=== PATIENT | female | born 1960 | race African-American/Black ===

== ENCOUNTER 2016-12-29 11:45 | Observation (INO) | payer OTHER ==
--- NOTE | 2016-12-29 14:09 | PDOC ---
History of Present Illness <Rufino Finley - Last Filed: 12/29/16 16:47> - General History Source: Patient Exam Limitations: No Limitations - History of Present Illness Initial Comments: 12/29/16 15:20 The patient is a 56 year old female, with no significant past medical history, who presents to the emergency department complaining of palpitations for several weeks. The patient reports her palpitations usually occur 2-3 times per week, and usually wake her up in the middle of the night. Typically her palpitations occur during the night. The patient reports she has not followed up with her PCP, Dr. Hanley, in over a year, because she relocated to [place]. However, the patient reports she is now back to [place]. Upon moving back, the patient reports feeling anxious about her return, but denies any other stressors. The patient denies any shortness of breath, diaphoresis, or chest pain. The patient denies any fever, chills, cough, headache, or dizziness. The patient denies any sick contacts. Allergies: None reported. Past Surgical History: None reported. Family History: Diabetes (mother) Social History: Non-smoker. Denies alcohol or drug use. PCP: Dr. Hanley <Duncan Liang - Last Filed: 12/29/16 16:52> - General Chief Complaint: Palpitations Stated Complaint: PALPITATIONS, DIZZINESS Time Seen by Provider: 12/29/16 14:09 Past History - Past Medical History Cardiac Disorders: Yes - Psycho/Social/Smoking Cessation Hx Suicidal Ideation: No Smoking History: Never smoked Information on smoking cessation initiated: No <Rufino Finley - Last Filed: 12/29/16 16:47> <uDncan Liang - Last Filed: 12/29/16 16:52> - Past Medical History Allergies/Adverse Reactions: Allergies Allergy/AdvReac Type Severity Reaction Status Date / Time No Known Allergies Allergy Verified 12/29/16 11:58 Home Medications: Ambulatory Orders NK [No Known Home Medication] 12/29/16 Review of Systems - Review of Systems Able to Perform ROS?: Yes Comments:: 12/29/16 15:21 GENERAL/CONSTITUTIONAL: No fever or chills. No weakness. HEAD, EYES, EARS, NOSE AND THROAT: No change in vision. No ear pain or discharge. No sore throat. CARDIOVASCULAR: +Palpitations. No chest pain or shortness of breath. RESPIRATORY: No cough, wheezing, or hemoptysis. GASTROINTESTINAL: No nausea, vomiting, diarrhea or constipation. GENITOURINARY: No dysuria, frequency, or change in urination. MUSCULOSKELETAL: No joint or muscle swelling or pain. No neck or back pain. SKIN: No rash NEUROLOGIC: No headache, vertigo, loss of consciousness, or change in strength/ sensation. ENDOCRINE: No increased thirst. No abnormal weight change. HEMATOLOGIC/LYMPHATIC: No anemia, easy bleeding, or history of blood clots. ALLERGIC/IMMUNOLOGIC: No hives or skin allergy. PSYCH: +Anxiety <GarthGiomilstorito - Last Filed: 12/29/16 16:52> *Physical Exam - Vital Signs Last Vital Signs Temp Pulse Resp BP Pulse Ox 98 F 64 18 127/60 98 12/29/16 11:54 12/29/16 11:54 12/29/16 11:54 12/29/16 11:54 12/29/16 11:54 <Rufino Finley - Last Filed: 12/29/16 16:47> - Vital Signs Last Vital Signs Temp Pulse Resp BP Pulse Ox 98 F 46 L 17 104/58 98 12/29/16 11:54 12/29/16 15:13 12/29/16 15:13 12/29/16 15:13 12/29/16 15:13 - Physical Exam Comments: 12/29/16 15:21 GENERAL: Awake, alert, and fully oriented, in no acute distress HEAD: No signs of trauma EYES: PERRLA, EOMI, sclera anicteric, conjunctiva clear ENT: Auricles normal inspection, hearing grossly normal, nares patent, oropharynx clear without exudates. Moist mucosa NECK: Normal ROM, supple, no lymphadenopathy, JVD, or masses LUNGS: Breath sounds equal, clear to auscultation bilaterally. No wheezes, and no crackles HEART: Regular rate and rhythm, normal S1 and S2, no murmurs, rubs or gallops ABDOMEN: Soft, nontender, normoactive bowel sounds. No guarding, no rebound. No masses EXTREMITIES: Normal range of motion, no edema. No clubbing or cyanosis. No cords, erythema, or tenderness NEUROLOGICAL: Cranial nerves II through XII grossly intact. Normal speech, normal gait SKIN: Warm, Dry, normal turgor, no rashes or lesions noted. <Duncan Liang - Last Filed: 12/29/16 16:52> Heart Score/ECG Review - ECG Impressions Comment:: 12/29/16 16:49 Vent. Rate: 46 bpm IMPRESSION: Sinus bradycardia. <Duncan Liang - Last Filed: 12/29/16 16:52> ED Treatment Course - LABORATORY CBC & Chemistry Diagram: 12/29/16 14:53 12/29/16 14:53 <Rufino Finley - Last Filed: 12/29/16 16:47> - LABORATORY CBC & Chemistry Diagram: 12/29/16 14:53 12/29/16 14:53 - RADIOLOGY Radiograph Interpretation: 12/29/16 16:51 EXAM: CXR INTERPRETED BY: Dr. Nava REVIEWED BY: Dr. Finley IMPRESSION: Normal Chest <Duncan Liang - Last Filed: 12/29/16 16:52> Medical Decision Making - Medical Decision Making 12/29/16 16:[address] Cantrell. <Duncan Liang - Last Filed: 12/29/16 16:52> *DC/Admit/Observation/Transfer - Discharge Dispostion Admit: Yes - Attestations Physician Attestion: 12/29/16 14:09 I, Dr. Rufino Finley, attest that this document has been prepared under my direction and personally reviewed by me in its entirety. I further attest, that it accurately reflects all work, treatment, procedures and medical decision -making performed by me. <Rufino Finley - Last Filed: 12/29/16 16:47> - Attestations Scribe Attestion: 12/29/16 16:50 Documentation prepared by Duncan Liang, acting as medical coding auditor for Rufino Finley DO. <Duncan Liang - Last Filed: 12/29/16 16:52> Diagnosis at time of Disposition: Heart palpitations, Bradycardia by electrocardiogram, SSS (sick sinus syndrome) - Discharge Dispostion Condition at time of disposition: Improved - Referrals Referrals: Demetrio Hanley MD [Primary Care Provider] -
[2016-12-29] MEDS: SODIUM CHLORIDE 1,000 ML IV SCH (15:00)
[2016-12-29 15:22] LABS: ALBUMIN 3.8 g/dl (3.4-5.0); ANION GAP 8 (8-16); CO2 29 mmol/L (21-32); CREATININE 0.7 mg/dL (0.55-1.02); GLUCOSE,RANDOM 84 mg/dL (74-106); MAGNESIUM 2.5 mg/dL (1.8-2.4); SGOT/AST 14 U/L (15-37); SGPT/ALT 12 U/L (12-78)
[2016-12-29 15:26] LABS: ALK PHOS 71 U/L (45-117); BILIRUBIN,TOTAL 0.3 mg/dL (0.2-1.0); TOT PROT 7.5 g/dl (6.4-8.2); TROPONIN I < 0.02 ng/ml (0.00-0.05)
--- NOTE | 2016-12-29 15:55 | EKG ---
Test Reason : Blood Pressure : / mmHG Vent. Rate : 046 BPM Atrial Rate : 046 BPM P-R Int : 166 ms QRS Dur : 080 ms QT Int : 444 ms P-R-T Axes : 070 054 066 degrees QTc Int : 388 ms SINUS BRADYCARDIA OTHERWISE NORMAL ECG WHEN COMPARED WITH ECG OF 18-AUG-2003 12:21, PREMATURE VENTRICULAR COMPLEXES ARE NO LONGER PRESENT Confirmed by LOIS MEDRANO MD ([id number]) on 12/29/2016 3:54:46 PM Referred By: Confirmed By:LOIS MEDRANO MD
[2016-12-29 16:43] LABS: BASOPHIL 0.6 % (0-2.0); EOSINOPHIL 1.5 % (0-4.5); MCH 28.1 pg (25.7-33.7); MCHC 33.5 g/dl (32.0-36.0); MEAN CELL VOLUME 83.9 fl (80-96); MEAN PLT VOLUME 8.7 fl (7.5-11.1); NEUTROPHILS 39.1 % (42.8-82.8); PLATELET COUNT 349 K/MM3 (134-434); RDW 13.5 % (11.6-15.6); WHITE BLOOD COUNT 4.8 K/mm3 (4.0-10.0)
[2016-12-29 18:26] VITALS: BMI 20.7
--- NOTE | 2016-12-29 19:02 | CON.CARD ---
Consult Consult Specialty:: Cardiology Referred by:: Sidney Reason for Consultation:: Palpitations, sinus bradycardia - History of Present Illness Chief Complaint: Palpitations History of Present Illness: The patient is a 56 year old female, with no significant past medical history presented to the emergency department complaining of non-exertional palpitations for several weeks, occurs 2-3 times per week, and usually wake her up in the middle of the night. The patient denies any chest tightness, shortness of breath, near or true syncope, orthopnea, PND or LE edema. Allergies: None reported. Past Surgical History: None reported. Family History: Diabetes (mother) Social History: Non-smoker. Denies alcohol or drug use. PCP: Dr. Hanley - History Source History Provided By: Patient Limitations to Obtaining History: No Limitations - Smoking History Smoking history: Never smoked Home Medications - Allergies Allergies/Adverse Reactions: Allergies Allergy/AdvReac Type Severity Reaction Status Date / Time No Known Allergies Allergy Verified 12/29/16 11:58 - Home Medications Home Medications: Ambulatory Orders NK [No Known Home Medication] 12/29/16 Review of Systems - Review of Systems Cardiovascular: reports: Palpitations Vital Signs: Vital Signs Temperature 98 F 12/29/16 11:54 Pulse Rate 56 L 12/29/16 18:21 Respiratory Rate 18 12/29/16 18:21 Blood Pressure 100/52 12/29/16 18:21 O2 Sat by Pulse Oximetry (%) 99 12/29/16 18:21 Constitutional: Yes: No Distress, Calm Neck: Yes: Supple Respiratory: Yes: Regular, CTA Bilaterally Gastrointestinal: Yes: Normal Bowel Sounds, Soft Cardiovascular: Yes: Bradycardia JVD: No Carotid Bruit: No Heart Sounds: Yes: S1, S2 Edema: No - Other Data SB @ [address]-T changes Imaging - Results Chest X-ray: Report Reviewed (NAD) Problem List - Problems (1) Heart palpitations Code(s): R00.2 - PALPITATIONS (2) Sinus bradycardia Code(s): R00.1 - BRADYCARDIA, UNSPECIFIED Assessment/Plan 1. Palpitations r/o sustained arrhythmia vs MVP syndrome 2. Sinus bradycardia P:1. Check TSH, echo to assess LV and valve fxn, tele monitoring 2. Further recommendations pending above study results 3. Thank you for consultative opportunity
--- NOTE | 2016-12-29 19:44 | HP ---
Admitting History and Physical - Primary Care Physician PCP: Arcadio Cantrell - Admission Chief Complaint: palpitations History of Present Illness: 56 year old female, with no significant past medical history presented to the emergency department complaining of non-exertional palpitations for several weeks, occurs 2-3 times per week, and usually wake her up in the middle of the night. The patient denies any chest tightness, shortness of breath, near or true syncope, orthopnea, PND or LE edema. pt knows about bradycardia for 14 years, dr kessler is her pmd, pt does not recal seeing a medical instructor - Past Medical History Cardiovascular: Yes: Other (braycardia) - Smoking History Smoking history: Never smoked Home Medications - Allergies Allergies/Adverse Reactions: Allergies Allergy/AdvReac Type Severity Reaction Status Date / Time No Known Allergies Allergy Verified 12/29/16 11:58 - Home Medications Home Medications: Ambulatory Orders NK [No Known Home Medication] 12/29/16 Physical Examination Vital Signs: Vital Signs Temperature 98 F 12/29/16 11:54 Pulse Rate 56 L 12/29/16 18:21 Respiratory Rate 18 12/29/16 18:21 Blood Pressure 100/52 12/29/16 18:21 O2 Sat by Pulse Oximetry (%) 99 12/29/16 18:21 Constitutional: Yes: No Distress HENT: Yes: Atraumatic Neck: Yes: Supple Cardiovascular: Yes: Regular Rate and Rhythm Respiratory: Yes: CTA Bilaterally Gastrointestinal: Yes: Normal Bowel Sounds Extremities: Yes: WNL Neurological: Yes: Alert, Oriented Problem List - Problems (1) Bradycardia by electrocardiogram Code(s): R00.1 - BRADYCARDIA, UNSPECIFIED (2) Heart palpitations Code(s): R00.2 - PALPITATIONS Assessment/Plan Laboratory Tests 12/29/16 12/29/16 14:53 14:53 WBC 4.8 RBC 4.24 Hgb 11.9 Hct 35.6 MCV 83.9 MCHC 33.5 RDW 13.5 Plt Count 349 MPV 8.7 Neutrophils % 39.1 L Lymphocytes % 45.6 H Monocytes % 13.2 H Eosinophils % 1.5 Basophils % 0.6 Sodium 141 Potassium 4.7 Chloride 104 Carbon Dioxide 29 Anion Gap 8 BUN 11 Creatinine 0.7 Creat Clearance w eGFR > 60 Random Glucose 84 Calcium 9.0 Magnesium 2.5 H Total Bilirubin 0.3 AST 14 L ALT 12 Alkaline Phosphatase 71 Creatine Kinase 165 CK-MB (CK-2) 1.652 Troponin I < 0.02 Total Protein 7.5 Albumin 3.8 Active Medications Generic Name Dose Route Start Last Admin Trade Name Freq PRN Reason Stop Dose Admin Sodium Chloride 1,000 mls @ 125 mls/hr 12/29/16 15:00 12/29/16 15:00 Normal Saline - IV 125 mls/hr ASDIR ISMAEL Administration 1.palpitations/BRADYCARDIA r/o arrythmia tele obs serial cardiac enzymes cardiology consult possible holter
[2016-12-29 21:01] LABS: INR 1.07 (0.82-1.09); PROTHROMBIN TIME (PATIENT) 11.8 SEC (9.98-11.88)
[2016-12-29 22:34] LABS: TROPONIN I < 0.02 ng/ml (0.00-0.05)
[2016-12-30 08:52] LABS: THYROID STIMULATING HORMONE 0.45 uIU/ml (0.358-3.74); TROPONIN I < 0.02 ng/ml (0.00-0.05)
--- NOTE | 2016-12-30 12:33 | EKG ---
Test Reason : Blood Pressure : / mmHG Vent. Rate : 047 BPM Atrial Rate : 047 BPM P-R Int : 168 ms QRS Dur : 074 ms QT Int : 444 ms P-R-T Axes : 064 015 042 degrees QTc Int : 392 ms SINUS BRADYCARDIA OTHERWISE NORMAL ECG WHEN COMPARED WITH ECG OF 29-DEC-2016 14:21, NO SIGNIFICANT CHANGE WAS FOUND Confirmed by JESU CAN MD ([id number]) on 12/30/2016 12:33:17 PM Referred By: PAM GARCÍA Confirmed By:JESU CAN MD
[2016-12-30] MEDS: SODIUM CHLORIDE 1,000 ML IV SCH (21:54)
--- NOTE | 2016-12-31 10:48 | PN ---
Progress Note (short form) - Note Progress Note: S: Patient requests Dr. Silverio for cardiology follow up. Call has been placed by the nurse to Dr. Armijo about patient's wishes. Patient was informed. Attestation: Documentation prepared by Nehemias Toussaint, acting as bilingual medical assistant for Santhosh Garcia MD.
--- NOTE | 2016-12-31 14:28 | CON.CARD ---
Consult - History of Present Illness History of Present Illness: The patient is a 56 year old female, with no significant past medical history presented to the emergency department complaining of non-exertional palpitations for several weeks, occurs 2-3 times per week, and usually wake her up in the middle of the night. The patient denies any chest tightness, shortness of breath, near or true syncope, orthopnea, PND or LE edema. - Smoking History Smoking history: Never smoked Home Medications - Allergies Allergies/Adverse Reactions: Allergies Allergy/AdvReac Type Severity Reaction Status Date / Time No Known Allergies Allergy Verified 12/29/16 11:58 - Home Medications Home Medications: Ambulatory Orders NK [No Known Home Medication] 12/29/16 Vital Signs: Vital Signs Temperature 98.4 F 12/31/16 10:00 Pulse Rate 53 L 12/31/16 10:00 Respiratory Rate 20 12/31/16 10:00 Blood Pressure 108/62 12/31/16 10:00 O2 Sat by Pulse Oximetry (%) 94 L 12/31/16 09:00 - Other Data Labs, Other Data: INR, PTT INR 1.07 (0.82-1.09) 12/29/16 14:53
--- NOTE | 2016-12-31 14:52 | PN ---
Progress Note, Physician History of Present Illness: The patient is a 56 year old female, with no significant past medical history presented to the emergency department complaining of non-exertional palpitations for several weeks, occurs 2-3 times per week, and usually wake her up in the middle of the night. The patient denies any chest tightness, shortness of breath, near or true syncope, orthopnea, PND or LE edema. - Current Medication List Current Medications: Active Medications Sodium Chloride (Normal Saline -) 1,000 mls @ 125 mls/hr IV ASDIR ISMAEL Last Admin: 12/30/16 21:54 Dose: Not Given - Objective Vital Signs: Vital Signs Temperature 98.4 F 12/31/16 10:00 Pulse Rate 53 L 12/31/16 10:00 Respiratory Rate 20 12/31/16 10:00 Blood Pressure 108/62 12/31/16 10:00 O2 Sat by Pulse Oximetry (%) 94 L 12/31/16 09:00 Eyes: Yes: WNL, Conjunctiva Clear, EOM Intact HENT: Yes: WNL, Atraumatic, Normocephalic Neck: Yes: WNL, Supple, Trachea Midline Cardiovascular: Yes: WNL, Regular Rate and Rhythm Respiratory: Yes: WNL, Regular, CTA Bilaterally Gastrointestinal: Yes: WNL, Normal Bowel Sounds Genitourinary: Yes: WNL Musculoskeletal: Yes: WNL Extremities: Yes: WNL Edema: No Integumentary: Yes: WNL Neurological: Yes: WNL, Alert, Oriented ...Motor Strength: WNL Psychiatric: Yes: WNL Labs: INR, PTT INR 1.07 (0.82-1.09) 12/29/16 14:53 Problem List - Problems (1) Bradycardia by electrocardiogram Code(s): R00.1 - BRADYCARDIA, UNSPECIFIED (2) Heart palpitations Code(s): R00.2 - PALPITATIONS (3) SSS (sick sinus syndrome) Code(s): I49.5 - SICK SINUS SYNDROME (4) Sinus bradycardia Code(s): R00.1 - BRADYCARDIA, UNSPECIFIED Assessment/Plan Palpitions mildly elevated RVSP 29 mm HG s. bradycardia plan 24 holter cont telemetry will f/u
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
[2017-01-01 05:49] VITALS: PULSE 50
[2017-01-01 08:46] LABS: CHOLESTEROL 196 mg/dL (50-200)
[2017-01-01 08:49] LABS: LDL CHOLESTEROL (ONLY SJRH) 105 mg/dL (5-100)
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
--- NOTE | 2017-01-01 13:38 | TRE ---
Protocol Name : MAG Max Work Load (METS*10) : 60 Time In Exercise Phase : 00:04:13 Max. Systolic BP : 138 mmHg Max Diastolic BP : 70 mmHg Max Heart Rate : 96 BPM Max Predicted Heart Rate : 164 BPM Attending Physician : Reason For Termination : PAIN RT FOOT Reason for Test : BRADYCARDIA Stress Protocol : MAG Rest HR : 44 BPM PeakEx METs : 6.0 METS Recovery ECG Response (OLD) : Diagnosis : Baseline ecg shows sinus bradycardia in 50s. Patient exercised for 4:13 minutes achieving 58% mphr. No chest pain or anginal symptoms, exercise limited by foot pain. Normal BP response to exercise. Normal chronotropic response to exercise with HR reaching up to 96 bpm in stage 2 of Mag protocol. No arrhythmias. No ischemic ecg changes at HR achieved, however stress ecg is nondiagnostic for ischemia given failure to reach target HR. Non-diagnostic stress ecg due to failure to reach target HR. Confirmed by KAYE HORNER MD ([id number]) on 01/01/2017 1:38:04 PM
[2017-01-01 15:05] VITALS: BP 107/52; TEMP 98.8
--- NOTE | 2017-01-01 16:11 | HOL ---
Hook-up date: 2016-12-31 15:37:00 Duration: 23:38:00 Test Indications: PALPITATIONS Medications: 65480 QRS complexes * Ventricular ectopics which represent % of total QRS comp. 1 Supraventricular ectopics which represent <1 % of total QRS comp. * Paced QRS complexs which represent % of total QRS comp. 3 % of Time Classified as Noise VENTRICULAR ECTOPY * Isolated * Bigeminal Cycles * Couplets * Runs * Beats in Runs * Beats LONGEST at * BPM at :: -- * Beats FASTEST at * BPM at :: -- SUPRAVENTRICULAR ECTOPY 1 Isolated 0 Couplets 0 Runs 0 Beats in Runs * Beats LONGEST at * BPM at :: -- * Beats FASTEST at * BPM at :: -- HEART RATES 36 MIN at 17:01:13 2016-12-31 54 AVG 129 MAX at 08:35:45 2017-01-01 LONGEST RR 1.744 secs at 13:01:13 2017-01-01 SCANNED BY WILLY NAVA 01/01/2017 NO DIARY SUBMITTED HOLTER MONITOR REMOVED FOR 1 HR FOR STRESS TEST. 1. Baseline rhythm is sinus bradycardia with avg hr 54 and range 36 to 129. 2. Patient remained mostly in sinus bradycardia with HR in 40s-50s without significant pauses and no evidence of avb or bradyarrhythmias. 3. Rare PACs. No PVCs detected. 4. No VT, VF, afib, aflutter, or svt detected. 5. No diary submitted. Confirmed by KAYE HORNER MD ([id number]) on 01/01/2017 4:10:22 PM Referred By: Overread By: KAYE HORNER MD
--- NOTE | 2017-01-01 16:30 | DS ---
Physical Examination Vital Signs: Vital Signs Temperature 98.8 F 01/01/17 15:02 Pulse Rate 50 L 01/01/17 15:02 Respiratory Rate 20 01/01/17 15:02 Blood Pressure 107/52 01/01/17 15:02 O2 Sat by Pulse Oximetry (%) 97 01/01/17 09:00 Constitutional: Yes: No Distress HENT: Yes: Atraumatic Neck: Yes: Supple Cardiovascular: Yes: Regular Rate and Rhythm Respiratory: Yes: CTA Bilaterally Gastrointestinal: Yes: Normal Bowel Sounds Extremities: Yes: WNL Neurological: Yes: Alert, Oriented Discharge Summary Reason For Visit: SICK SINUS SYNDROME Current Active Problems Anxiety (Acute) Bradycardia by electrocardiogram (Acute) Heart palpitations (Acute) 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
== END 2017-01-01 17:46 | disposition home or self-care (01) ==
LOC: JER 11:45 → JERBED 16:48 → J4W 18:40
PROVIDERS: ADMIT Internal Medicine; ATTEND Internal Medicine
DX: R00.2 Palpitations (principal); R00.1 Bradycardia, unspecified; F41.9 Anxiety disorder, unspecified; C50.919 Malignant neoplasm of unspecified site of unspecified female breast
CPT/HCPCS: 36415; 71010-TC; 80053; 80061; 82550; 82553; 83721; 83735; 84443; 84484; 85025; 85610; 93005; 93010; 93017; 93018; 93225; 93226; 93306-TC; 93880-TC; 99284-25; G0378

== ENCOUNTER → 2017-06-15 | Day surgery (SDC) | payer OTHER ==
--- NOTE | 2017-06-17 15:29 | PATH ---
Surgical Pathology Report Patient Name: CYNTHIA ORDONEZ [facility]. Rec. #: [id number] /Age/Gender: 1960 (Age: 56) / F Account: [id number] Location: Taken: 06/15/2017 Received: 06/15/2017 Reported: 06/17/2017 Physicians: Audrey Dean MD Specimen(s) Received RIGHT BREAST 5:30 5 CMFN CORE BIOPSY Clinical History Ultrasound findings: Probably benign Final Diagnosis BREAST, RIGHT, 5:30, 5 CMFN, CORE BIOPSY: BENIGN BREAST TISSUE SHOWING FIBROADENOMA WITH ASSOCIATED FIBROCYSTIC CHANGES. Electronically Signed Janet Cha M.D. Gross Description Received in formalin labeled "right breast core 5:30, 5 cmfn," is a 1.5 x 1.2 x 0.2 cm aggregate of multiple siu-yellow, irregular to cylindrical portions of fibroadipose tissue. The formalin is filtered and the specimen is entirely submitted in one cassette. Time to formalin fixation: 2 minutes Total formalin fixation time: Approximately 27 hours. 06/16/2017 saudi06/16/2017
== END | disposition home or self-care (01) ==
LOC: FRADUS-SUR 13:34
PROVIDERS: ATTEND Surgery
PROC: 0HBT3ZX Excision of Right Breast, Percutaneous Approach, Diagnostic (ICD-10-PCS; principal; 2017-06-15)
DX: D24.2 Benign neoplasm of left breast (principal); N63 Unspecified lump in breast; N60.11 Diffuse cystic mastopathy of right breast
CPT/HCPCS: 19083; 88305-TC; G0206-TC

== ENCOUNTER 2020-05-13 20:19 | Emergency (ER) | payer OTHER ==
[2020-05-13 20:26] VITALS: PULSE 69; TEMP 98.4; BMI 25.0
--- NOTE | 2020-05-13 20:26 | PDOC ---
Rapid Medical Evaluation Time Seen by Provider: 05/13/20 20:23 Medical Evaluation: Allergies Allergy/AdvReac Type Severity Reaction Status Date / Time No Known Allergies Allergy Verified 12/29/16 11:58 05/13/20 20:23 Pt presents with R shoulder pain. She states she has history of dislocation and fracture on that side in March 2019. States she felt her shoulder "start slip" 45 minutes ago. Exam: guarding R shoulder Orders: x-ray Pt to proceed to the ER for further evaluation Discharge Disposition - Diagnosis Shoulder pain Qualifiers: Chronicity: acute Laterality: right Qualified Code(s): M25.511 - Pain in right shoulder - Referrals Referrals: Demetrio Hanley MD [Primary Care Provider] - - Patient Instructions - Post Discharge Activity
[2020-05-13] MEDS ORDERED: IBUPROFEN 600 MG TABLET (FP) PO ONE ×2 (21:16→21:24)
[2020-05-13] MEDS ORDERED: LIDOCAINE 5% TOPICAL PATCH TP ONE (21:16)
[2020-05-13] MEDS ORDERED: LIDOCAINE 5% TOPICAL PATCH ONE (21:24)
--- NOTE | 2020-05-13 21:27 | PDOC ---
History of Present Illness - General Chief Complaint: Pain Stated Complaint: SHOULDER PAIN Time Seen by Provider: 05/13/20 20:23 History Source: Patient Exam Limitations: No Limitations - History of Present Illness Initial Comments: 05/13/20 21:21 Patient is a 59-year-old female with history of bradycardia, PPM, right shoulder recurrent dislocation here with complaint of right shoulder pain since about 2 hours ago. States that she has had many dislocations and relocations over the past 4 years. States tonight she was just sitting slight movement backward with her arm when the shoulder slipped out. Patient described the pain as excruciating 10/10, with no aggravating or alleviating factors. She did not take any meds at home for the pain. PMD: Dr. Alves PMHX: as above PSOCHX: neg etoh, drug, cig ALL: NKDA GENERAL/CONSTITUTIONAL: [No fever or chills. No weakness. No weight change.] HEAD, EYES, EARS, NOSE AND THROAT: [No change in vision. No ear pain or d ischarge. No sore throat.] GENITOURINARY: [No dysuria, frequency, or change in urination.] MUSCULOSKELETAL: [No joint or muscle swelling or pain. No neck or back pain.] SKIN AND BREASTS: [No rash or easy bruising.] NEUROLOGIC: [No headache, vertigo, loss of consciousness, or loss of sensation.] ALLERGIC/IMMUNOLOGIC: [No hives or skin allergy. No latex allergy.] GENERAL: [The patient is awake, alert, and fully oriented, in no acute distress.] ENT: [Ears normal, Moist mucous membranes.] NECK: [Normal range of motion, (-) JVD, or masses.] LUNGS: [Breath sounds equal, clear to auscultation bilaterally. No wheezes, and no crackles.] HEART: [Regular rate and rhythm, normal S1 and S2 without murmur, rub.] EXTREMITIES: [Decreased range of motion of the right shoulder, tenderness to the shoulder, no edema. No clubbing or cyanosis. No cords, erythema, or tenderness.] NEUROLOGICAL: [Cranial nerves II through XII grossly intact. Normal speech, normal gait.] SKIN: [Warm, Dry, normal turgor, no rashes or lesions noted.] Past History - Medical History Allergies/Adverse Reactions: Allergies Allergy/AdvReac Type Severity Reaction Status Date / Time No Known Allergies Allergy Verified 12/29/16 11:58 Home Medications: Ambulatory Orders NK [No Known Home Medication] 12/29/16 Cardiac Disorders: Yes (pacemaker) COPD: No - Psycho-Social/Smoking History Smoking History: Never smoked - Substance Abuse Hx (Audit-C & DAST Scrn) How often the patient has a drink containing alcohol: Never Score: In Men: 4 or > Positive; In Women: 3 or > Positive: 0 Screen Result (Pos requires Nsg. Audit-10AR): Negative *Physical Exam - Vital Signs Last Vital Signs Temp Pulse Resp BP Pulse Ox 98.4 F 69 20 152/105 H 100 05/13/20 20:22 05/13/20 20:22 05/13/20 20:22 05/13/20 20:22 05/13/20 20:22 Medical Decision Making - Medical Decision Making 05/13/20 21:21 Patient is a 59-year-old female with history of bradycardia, PPM, right shoulder recurrent dislocation here with complaint of right shoulder pain since about 2 hours ago. States that she has had many dislocations and relocations over the past 4 years. States tonight she was just sitting slight movement backward with her arm when the shoulder slipped out. Patient described the pain as excruciating 10/10, with no aggravating or alleviating factors. She did not take any meds at home for the pain. Symptoms consistent with shoulder pain possible arthritis status post dislocation.. X-ray X-ray shows no acute dislocation or fracture. I discussed the physical exam findings, ancillary test results and final di agnoses with the patient. I answered all of the patient's questions. The patient was satisfied with the care received and felt comfortable with the discharge plan and treatment plan. The Patient agrees to follow up with the primary care physician within 24-72 hours. Discharge - Discharge Information Problems reviewed: Yes Clinical Impression/Diagnosis: Shoulder pain Qualifiers: Chronicity: acute Laterality: right Qualified Code(s): M25.511 - Pain in right shoulder Condition: Stable Disposition: HOME - Follow up/Referral Referrals: Demetrio Hanley MD [Staff Physician] - Don Garza MD [Staff Physician] - - Patient Discharge Instructions Patient Printed Discharge Instructions: DI for Shoulder Pain Additional Instructions: Your Discharge Instructions: You must call primary care physician within 24 hours to arrange follow-up. Return to the Emergency Department with any new, persistent or worsening symptoms, for fever, chills, SOB, dizziness or any other concerning changes that may occur. You should call Medicaid to get a provider that accepts your insura nce for orthopedic surgery. - Post Discharge Activity
[2020-05-13 21:35] VITALS: BP 147/75
[2020-05-13] MEDS ORDERED: LIDOCAINE PATCH REMOVAL MC SCH (22:00)
== END 2020-05-13 21:51 | disposition home or self-care (01) ==
LOC: JER 20:19 → JERFT 20:19
DX: M25.511 Pain in right shoulder (principal)
CPT/HCPCS: 73030-TC-RT-FY; 99283-25